=== PATIENT | male | born 2000 | race Two or more races ===

== ENCOUNTER 2020-08-20 07:37 | Emergency (ER) | payer SELFPAY ==
[~2020-08-20] VITALS: Ht 172.7 cm; Wt 61.2 kg
[2020-08-20 08:37] LABS: Basophils # (auto) 0 10 ^3/uL (0-0.2); Basophils % (auto) 0.2 % (0.0-2.0); Eosinophils # (auto) 0 10 ^3/uL (0-0.8); Hematocrit 44.6 % (41.0-53.0); Hemoglobin 14.8 g/dL (13.5-17.5); Lymphocytes % (auto) 4.3 % (10.0-50.0); Mean Corpuscular Hemoglobin 29.5 pg (28.0-32.0); Mean Corpuscular Hgb Conc. 33.2 g/dL (32.0-36.0); Mean Corpuscular Volume 88.8 fL (80.0-100.0); Monocytes # (auto) 0.5 10 ^3/uL (0-1.3); Monocytes % (auto) 2.2 % (0.0-12.0); Neutrophils # (auto) 21.5 10 ^3/uL (1.6-8.6); Neutrophils % (auto) 93.3 % (37.0-80.0); Nucleated Red Blood Cells % 0.1 %; Platelet Count (auto) 226 10^3/uL (140-450); Red Blood Cells 5.02 10^6/uL (4.5-5.90); Red Cell Distribution Width 13.8 % (11.8-14.3); White Blood Cell 23.1 10^3/uL (4.4-10.8)
[2020-08-20 08:45] LABS: Albumin 4.1 g/dL (3.4-5.0); Anion Gap 17 (5-15); Blood Alcohol < 3.0 mg/dL (0-5); Blood Urea Nitrogen 17 mg/dL (7-18); Calcium 8.6 mg/dL (8.5-10.1); Carbon Dioxide 20 mmol/L (21-32); Chloride 103 mmol/L (98-107); Glucose 216 mg/dL (74-106); Potassium 3.9 mmol/L (3.5-5.1); Salicylate < 1.7 mg/dL (2.8-20.0); Sodium 140 mmol/L (136-145)
[2020-08-20 08:48] LABS: Alanine Aminotransferase 108 U/L (16-61); Alkaline Phosphatase 67 U/L (45-117); Aspartate Aminotransferase 91 U/L (15-37); BUN/Creatinine Ratio 9.2; Bilirubin, Total 0.3 mg/dL (0.2-1.0); GFR African American 60 mL/min; GFR Non-African American 50 mL/min; Total Protein 7.7 g/dL (6.4-8.2)
[2020-08-20 08:49] LABS: Acetaminophen < 2.0 ug/mL (10-30)
[2020-08-20] MEDS ORDERED: PROCHLORPERAZINE EDISYLATE 5 MG/ML 2ML VIAL IV ONE (09:30)
[2020-08-20 11:22] LABS: Urine Bacteria NONE SEEN /hpf (None Seen); Urine Blood Negative /uL (Negative); Urine Mucus FEW (None Seen); Urine Specific Gravity 1.013 (1.001-1.035); Urine WBC 11 /hpf (0 - 3)
[2020-08-20 11:49] LABS: Alcohol, Urine < 3.0 mg/dL (0-10); Amphetamine Screen, Urine NEGATIVE (NEGATIVE); Barbiturate Scree,Urine NEGATIVE (NEGATIVE); Benzodiazephine Screen, Urine NEGATIVE (NEGATIVE); Cannabinoid Screen, Urine POSITIVE (NEGATIVE); Cocaine Screen, Urine NEGATIVE (NEGATIVE); Phencyclidine Screen, Urine NEGATIVE (NEGATIVE)
[2020-08-20 11:56] LABS: Opiate Scree,Urine NEGATIVE (NEGATIVE)
[2020-08-20 17:04] VITALS: BP 110/88
== END 2020-08-20 17:39 | disposition home or self-care (01) ==
LOC: ER 07:37 → EDBD 07:37 → ER 17:39
DX: R41.82 Altered mental status, unspecified (principal); D72.828 Other elevated white blood cell count; N18.30 Chronic kidney disease, stage 3 unspecified; R73.9 Hyperglycemia, unspecified
CPT/HCPCS: 36415; 71045; 80053; 80307; 80320; 80329; 81001; 83036; 83735; 85025; 93005; 96374; 99285; J0780